=== PATIENT | male | born 1950 | race Two or more races ===

== ENCOUNTER 2018-02-03 08:08 | Emergency (ER) | payer MEDICARE ==
[~2018-02-03] VITALS: Ht 154.9 cm; Wt 51.7 kg
[2018-02-03 08:20] VITALS: BP 137/83
--- NOTE | 2018-02-03 08:20 | PHYS DOC ---
Adult General Chief Complaint Chief Complaint: ANIMAL BITE HPI HPI Patient is a 67 year old male who presents with left forearm dog bite, patient states he was walking on the street when a stray dog bit him. Patient states his not up-to-date. Review of Systems Review of Systems Constitutional: Denies fever or chills [] Musculoskeletal: Denies back pain or joint pain [] Integument: Reports dog bite to the left forearm Neurologic: Denies headache, focal weakness or sensory changes [] All other systems were reviewed and found to be within normal limits, except as documented in this note. Current Medications Current Medications Current Medications Medications (Trade) Dose Ordered Sig/Bessy Start Time Stop Time Status Last Admin Dose Admin Amoxicillin/ Clavulanate Potassium (Augmentin 875/ 125mg) 1 tab 1X ONCE 02/03/18 09:00 02/03/18 09:01 Diphtheria/ Tetanus/Acell Pertussis (Boostrix) 0.5 ml ONCE ONCE 02/03/18 09:00 02/03/18 09:01 Neomycin/ Polymyxin/ Bacitracin (Triple Antibiotic Ointment) 1 pkt 1X ONCE 02/03/18 09:00 02/03/18 09:01 Allergies Allergies Allergies Coded Allergies Type Severity Reaction Last Updated Verified No Known Drug Allergies 02/03/18 No Physical Exam Physical Exam Constitutional: Well developed, well nourished, no acute distress, non-toxic appearance. [] Skin: Warm, dry, left lateral forearm with a dog bite laceration approximately 4 x 3 cm. There is also a bruise on the lateral aspect of this laceration. Full range of motion to the left forearm and hand. Adequate radial, medial and was not sensation to the left upper extremity. +2 left radial pulse. Cap refill is less than 2 seconds the left fingers. Back: No tenderness, no CVA tenderness. [] Extremities: No tenderness, no cyanosis, no clubbing, ROM intact, no edema. [] Neurologic: Alert and oriented X 3, normal motor function, normal sensory function, no focal deficits noted. [] Psychologic: Affect normal, judgement normal, mood normal. [] Current Patient Data Vital Signs Vital Signs Date Time Temp Pulse Resp B/P (MAP) Pulse Ox O2 Delivery O2 Flow Rate FiO2 02/03/18 08:20 98.6 53 14 137/83 (101) 97 Room Air 98.6 EKG EKG [] Radiology/Procedures Radiology/Procedures []PROCEDURE: FOREARM LEFT Left forearm 2 views. HISTORY: Forearm pain after dog bite 2 views were taken of the left forearm. There is soft tissue injury in the mid forearm. There is no fracture or opaque foreign body. IMPRESSION: 1. Soft tissue injury. 2. No fracture or other acute osseous abnormality. Electronically signed by: Lissa Salazar MD (02/03/2018 8:38 AM) [facility] DICTATED and SIGNED BY: LISSA SALAZAR MD DATE: 02/03/18 0837 Course & Med Decision Making Course & Med Decision Making Pertinent Labs and Imaging studies reviewed. (See chart for details) This is a 67-year-old male patient presented to the ED today with dog bite to the left forearm. Left forearm x-rays interpreted by radiologist is negative for any acute findings.The dog bite site was cleaned thoroughly with a lot of normal saline. Neosporin applied to the area, area was covered with nonstick dressing Tetanus updated. Patient discharged on Augmentin. Wound care instructions and return precautions provided. Follow-up with PCP in 1-2 weeks as needed. Dragon Disclaimer Dragon Disclaimer This electronic medical record was generated, in whole or in part, using a voice recognition dictation system. Departure Departure Impression: Primary Impression: Dog bite of left forearm Disposition: 01 HOME, SELF-CARE Condition: STABLE Patient Instructions: Animal Bite, [id number] Additional Instructions: You have a dog bite to the left forearm. You can shower and wash the area twice a day. Apply Neosporin to the area twice a day. Please complete your oral antibiotics. Come back to the emergency room at any point wound condition worsens, you have a fever or any other concerning symptoms. Follow-up with your doctor in 1-2 weeks. Scripts Amoxicillin/Potassium Clav (AUGMENTIN 875-125 TABLET) 1 Each Tablet 1 TAB PO BID, #20 TAB Prov: GERRY MILLAN APRN 02/03/18 Problem Qualifiers Primary Impression: Dog bite of left forearm Encounter type: initial encounter Qualified Codes: S51.852A - Open bite of left forearm, initial encounter; W54.0XXA - Bitten by dog, initial encounter GERRY MILLAN APRN Feb 03, 2018 08:20
--- NOTE | 2018-02-03 08:42 | RAD ---
Left forearm 2 views. HISTORY: Forearm pain after dog bite 2 views were taken of the left forearm. There is soft tissue injury in the mid forearm. There is no fracture or opaque foreign body. IMPRESSION: 1. Soft tissue injury. 2. No fracture or other acute osseous abnormality. Electronically signed by: Mitchel Ricardo MD (02/03/2018 8:38 AM) [facility]
[2018-02-03] MEDS ORDERED: AMOX1TAB61 PO (08:49)
[2018-02-03] MEDS ORDERED: AMOXICILLIN/K CLAV 875/125MG TABLET. PO ONE (09:00)
[2018-02-03] MEDS ORDERED: NEOMY/BACITR/POLYMYXIN OINT PACKET. TP ONE (09:00)
[2018-02-03] MEDS ORDERED: DIPHTH,PERTUSS(ACELL),TET TOX 0.5 ML DISP.SYRIN. VAX IM ONE (09:00)
== END 2018-02-03 09:11 | disposition home or self-care (01) ==
LOC: ER 08:08
DX: S51.852A Open bite of left forearm, initial encounter (principal); W54.0XXA Bitten by dog, initial encounter; Y93.01 Activity, walking, marching and hiking; Y92.89 Other specified places as the place of occurrence of the external cause; Y99.8 Other external cause status
CPT/HCPCS: 73090; 90471; 90715; 99284-25

== ENCOUNTER 2021-07-22 10:29 | Emergency (ER) | payer OTHER ==
[~2021-07-22] VITALS: Ht 160 cm; Wt 54.3 kg
[~2021-07-22 10:29] MED LIST: AMOX1TAB61 PO
[2021-07-22] MEDS ORDERED: HYDROcodone/APAP 5/325MG 1 TAB TABLET PO ONE (11:30)
[2021-07-22] MEDS ORDERED: CYCLOBENZAPRINE 10 MG TABLET. PO ONE (11:30)
[2021-07-22] MEDS ORDERED: IBUPROFEN 400 MG TABLET. PO ONE (11:30)
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
[2021-07-22] MEDS ORDERED: HYDR-2761 PO (12:33)
[2021-07-22] MEDS ORDERED: CYCL5TAB PO (12:33)
[2021-07-22] MEDS ORDERED: IBUP-1007 PO (12:33)
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
[2021-07-22 13:33] VITALS: BP 120/71
== END 2021-07-22 13:37 | disposition home or self-care (01) ==
LOC: ER 10:29
DX: S13.9XXA Sprain of joints and ligaments of unspecified parts of neck, initial encounter (principal); F17.200 Nicotine dependence, unspecified, uncomplicated; V49.49XA Driver injured in collision with other motor vehicles in traffic accident, initial encounter; Y93.89 Activity, other specified; Y92.89 Other specified places as the place of occurrence of the external cause; Y99.8 Other external cause status
CPT/HCPCS: 72125; 99284-25

== ENCOUNTER 2021-08-21 11:56 | Emergency (ER) | payer OTHER ==
[~2021-08-21] VITALS: Ht 149.9 cm; Wt 53.5 kg
[~2021-08-21 11:56] MED LIST changes: +CYCL5TAB PO; +HYDR-2761 PO; +IBUP-1007 PO
[2021-08-21 12:33] LABS: BACTERIA,URINE FEW /HPF (0-FEW); RBC,URINE 0 /HPF (0-2); WBC,URINE OCC /HPF (0-4)
[2021-08-21] MEDS ORDERED: predniSONE 20 MG TABLET PO ONE (13:45)
[2021-08-21] MEDS ORDERED: KETOROLAC 60 MG/2 ML VIAL. IM ONE (13:45)
[2021-08-21] MEDS ORDERED: ORPHENADRINE CITRATE 60 MG/2 ML VIAL. IM ONE (13:45)
[2021-08-21] MEDS ORDERED: PRED20TA PO (13:58)
[2021-08-21] MEDS ORDERED: CYCL10TA19 PO (13:58)
[2021-08-21] MEDS ORDERED: IBUP-1007 PO (13:58)
--- NOTE | 2021-08-21 13:59 | PHYS DOC ---
Past Medical History Past Medical History: No Pertinent History Past Surgical History: Other Additional Past Surgical Histo: R Knee Smoking Status: Current Every Day Smoker Alcohol Use: Rarely Drug Use: None General Adult EDM: Chief Complaint: BACK PAIN - NO INJURY HPI: HPI: Patient is a 70-year-old male who presents emergency department stating he is having a sciatica flareup after helping his daughter move furniture this past Sunday. Patient denies injury to his back. Reports burning sensation on the right lumbar area that radiates into his buttocks. Patient reports this is typical for his sciatica flareup back pain. Patient denies numbness or tingling to his genitals or buttocks, denies acute injury, denies a history of IV drug use, denies history of immunosuppression cancers fever or chills. Patient denies other physical complaints or physical concerns. Patient reports he has not taken any pain medication for this discomfort today. Reports he did take a Naprosyn and Motrin this past Sunday with minimal relief. Patient denies inc reased urinary frequency, urinary burning, urinary pressure, hematuria or other dysuria. Patient denies loss of bowel or bladder continence, denies urinary retention Review of Systems: Review of Systems: 14 body systems of review of systems have been reviewed. See HPI for pertinent positives and negative responses, otherwise all other systems are negative, nonpertinent or noncontributory. Constitutional: Negative except as outlined in HPI above. Skin: Negative except as outlined in HPI above. Eyes: Negative except as outlined in HPI above. HENT: Negative except as outlined in HPI above. Respiratory: Negative except as outlined in HPI above. Cardiovascular: Negative except as outlined in HPI above. GI: Negative except as outlined in HPI above. : Negative except as outlined in HPI above. Musculoskeletal: Negative except as outlined in HPI above. Integument: Negative except as outlined in HPI above. Neurologic: Negative except as outlined in HPI above. Endocrine: Negative except as outlined in HPI above. Lymphatic: Negative except as outlined in HPI above. Psychiatric: Negative except as outlined in HPI above. Heart Score: C/O Chest Pain: No Risk Factors: Risk Factors: DM, Current or recent (<one month) smoker, HTN, HLP, family history of CAD, obesity. Risk Scores: Score 0 - 3: 2.5% MACE over next 6 weeks - Discharge Home Score 4 - 6: 20.3% MACE over next 6 weeks - Admit for Clinical Observation Score 7 - 10: 72.7% MACE over next 6 weeks - Early Invasive Strategies Allergies: Allergies: Allergies Coded Allergies Type Severity Reaction Last Updated Verified No Known Drug Allergies 02/03/18 No Physical Exam: PE: Constitutional: Well developed, well nourished, no acute distress, non-toxic appearance. 70-year-old male in no apparent distress. HENT: Normocephalic, atraumatic. Eyes: Conjunctiva normal, no discharge. Neck: Normal range of motion, no stridor. Cardiovascular: No cyanosis appreciated, distal cap refill less than 2 seconds. Lungs & Thorax: Patient is in no respiratory distress, no audible adventitious lung sounds appreciated. Abdomen: Nontender, no abnormalities noted. Skin: Warm, dry, no erythema, no rash. Back: No deformities present, tender to palpation along right lumbar musculoskeletal structures. Extremities: No tenderness, no cyanosis, no clubbing, ROM intact, no edema. Satisfactory 5/5 motor strength with hip flexion, knee flexion/extension/abduction, plantar/dorsiflexion at the ankle, dorsiflexion of the toes bilaterally. Neurologic: Alert and oriented X 3, normal motor function, normal sensory function, no focal deficits noted. Psychologic: Affect normal, judgement normal, mood normal. Current Patient Data: Labs: Laboratory Tests Test 08/21/21 12:01 Urine Collection Type Void Urine Color (Auto) Light yellow Urine Turbidity Clear Urine pH (Auto) 6.0 (<5.0-8.0) Urine Specific [place] 1.023 (1.000-1.030) Urine Protein (Auto) Negative mg/dL (Negative) Urine Glucose (Auto)(UA) Negative mg/dL (Negative) Urine Ketones (Auto) Negative mg/dL (Negative) Urine Blood (Auto) Negative (Negative) Urine Nitrite Negative (Negative) Urine Bilirubin (Auto) Negative (Negative) Urine Urobilinogen (Auto) Normal mg/dL (Normal) Urine Leukocyte Esterase (Auto) Negative (Negative) Urine RBC 0 /HPF (0-2) Urine WBC Occ /HPF (0-4) Urine Squamous Epithelial Cells Occ /LPF Urine Bacteria Few /HPF (0-FEW) Urine Mucus Slight /LPF Vital Signs: Vital Signs Date Time Temp Pulse Resp B/P (MAP) Pulse Ox O2 Delivery O2 Flow Rate FiO2 08/21/21 12:01 98.9 83 18 130/72 (91) 99 Room Air 98.9 EKG: EKG: [] Radiology/Procedures: Radiology/Procedures: [] Course & Med Decision Making: Course & Med Decision Making Pertinent Labs and Imaging studies reviewed. (See chart for details) 70-year-old male, vital signs reviewed, presents emergency department concerning sciatica flareup. Patient's physical examination is consistent with patient's explanation of events, patient has 5/5 motor strength with hip flexion/knee flexion/extension/abduction, plantar/dorsiflexion at the ankle, and dorsiflexion of the toes bilaterally, additionally there is no history of IV drug use, imm unosuppression, cancers, fever/chills, saddle anesthesia, bowel/bladder incontinence/retention or trauma that would necessitate emergent imaging. A urinalysis assay was performed, negative for hematuria or other signs of infection Discussed with patient will treat with pain medication, muscle relaxer, prednisone regimen. Reviewed with patient strict follow-up with primary care s oon, will give recommendation for primary care physician/clinics, return to ER precautions and concerns were reviewed, patient gave verbal understanding of and is amenable to ED discharge planning. Discussed with the patient all findings and diagnostic testing as well as the need to follow-up with their primary care provider for further evaluation and treatment or return to the ED if any new or worsening symptoms. Strict return precautions were also discussed at length, the patient voiced understanding and agreement with the discharge planning. The patient was nontoxic in appearance, in no apparent distress, and hemodynamically stable at the time of disposition. Dragon Disclaimer: Dragon Disclaimer: This electronic medical record was generated, in whole or in part, using a voice recognition dictation system. Departure Departure Impression: Primary Impression: Back pain Qualified Codes: M54.41 - Lumbago with sciatica, right side Disposition: HOME / SELF CARE / HOMELESS Condition: GOOD Referrals: UNKNOWN PCP NAME (PCP) Patient Instructions: Back Exercises, Back Pain in Additional Instructions: Lo atendieron hoy en el departamento de emergencias por dolor en la parte baja de la espalda. Est siendo tratado con patricia inyeccin intramuscular de Toradol para el dolor y patricia inyeccin intramuscular de Norflex para el dolor. Se le administr patricia tableta oral de prednisona. Le estoy recetando ms prednisona y analgsicos y relajantes musculares para uso domstico. Bouchra comentamos, use compresas de hielo en las reas adoloridas anali 30 minutos y 30 minutos de descanso anali las prximas 24 a 72 horas. Golovin todos los medicamentos recetados segn las indicaciones. No conduzca ni maneje maquinaria pesada ni realice actividades peligrosas mientras radha un relajante muscular. Shirley un seguimiento con huitron mdico de atencin primaria pronto. He proporcionado patricia lista de proveedores de atencin mdica y clnicas del tino sin cargo para establecer atencin primaria. Stephane por visitar nuestro Departamento de Emergencias. Fue un placer atenderlo hoy en el departamento de emergencias y le agradecemos que nos haya confiado huitron atencin. Si surge algn problema adicional, no dude en volver a visitarnos. Shirley un seguimiento con huitron proveedor de atencin primaria para que puedan planificar atencin adicional si es necesario y conocer el problema que tuvo. Si los sntomas empeoran, regrese al Departamento de Emergencias. Cualquier sntoma preocupante que comience, bouchra dolor en el pecho, falta de aire, debilidad o entumecimiento en un lado del cuerpo, fiebre adilene o cualquier otro sntoma preocupante, regresa a la deepa de emergencias. You are seen today in the emergency department for pain to your low back. You are being treated with a intramuscular injection of Toradol for pain, and intra muscular injection of Norflex for pain, you were given an oral tablet of prednisone. I am prescribing you more prednisone and pain medication and muscle relaxers for home use. As we discussed, please use ice packs to your sore areas 30 minutes on and 30 minutes off for the next 24 to 72 hours. Take all prescription medications as directed. Do not drive or operate heavy machinery or perform dangerous activities while taking a muscle relaxer. Follow-up with your primary care physician soon, I have provided a list of [facility] healthcare providers and clinics free to establish primary care with. Thank you for visiting our Emergency Department. It was a pleasure taking care of you today in the emergency department and we appreciate you trusting us with your care. If any additional problems come up don't hesitate to return to visit us. Please follow up with your primary care provider so they can plan additional care if needed and know about the problem that you had. If symptoms worsen come back to the Emergency Department. Any concerning symptoms that start such as chest pain, shortness of air, weakness or numbness on one side of the body, running high fevers or any other concerning symptoms return to the ER. [facility] [address] [place] [address] [facility] [address] [place] [address] [facility] [address] [place] [address] [facility] [address] [place] [address] [facility] [address] [place] [address] [facility] [address] [place] [address] [facility] [address] [place] [address] [facility] [address] [place] [address] [facility] [address] [place] [address] [facility] [address] [place] [address] Scripts Prednisone (PREDNISONE) 20 Mg Tablet 1 TAB PO UD for back pain, #15 TAB 0 Refills Take 2 tablets each day for the next 5 days, then reduce to 1 tablet each day for the next 5 days. Prov: EMELY AVALOS APRN 08/21/21 Ibuprofen (IBUPROFEN) 600 Mg Tablet 600 MG PO PRN Q6HRS PRN for INFLAMMATION, #30 TAB 0 Refills Prov: EMELY AVALOS APRN 08/21/21 Cyclobenzaprine Hcl (CYCLOBENZAPRINE HCL) 10 Mg Tablet 10 MG PO TID, #15 TAB 0 Refills Prov: EMELY AVALOS APRN 08/21/21 EMELY AVALOS APRN Aug 21, 2021 13:59
[2021-08-21 14:25] VITALS: BP 110/68
== END 2021-08-21 14:28 | disposition home or self-care (01) ==
LOC: ER 11:56
DX: M54.41 Lumbago with sciatica, right side (principal); F17.200 Nicotine dependence, unspecified, uncomplicated
CPT/HCPCS: 81001; 96372; 99284; J1885; J2360; J7512; 99285-25; 99291-25